=== PATIENT | female | born 1970 | race Caucasian/White ===

== ENCOUNTER 2022-07-24 09:21 | Outpatient (CLI) | payer OTHER, SELFPAY ==
--- NOTE | ~2022-07-24 | MM_ITS ---
EXAMINATION: MM screening tye BI w aide HISTORY: Screening mammogram TECHNIQUE: Craniocaudal and mediolateral oblique 3-D tomosynthesis images were obtained and synthetic 2-D images were generated. CAD analysis was submitted and interpreted. COMPARISON: No prior mammogram is available for comparison at this institution. BREAST PARENCHYMAL COMPOSITION: The breasts are almost entirely fatty. FINDINGS: There is no evidence of suspicious mass, calcification, or architectural distortion to sugg est malignancy in either breast. There has been no suspicious interval change. IMPRESSION: 1. No mammographic evidence of malignancy. 2. Recommend routine screening mammography in one year. BI-RADS Category 1: Negative Reviewed, dictated and finalized at location A. [employer]
== END 2022-07-24 09:22 | disposition home or self-care (01) ==
PROVIDERS: Visit Provider Family Medicine
DX: Z12.31 Encounter for screening mammogram for malignant neoplasm of breast (principal)
CPT/HCPCS: 77063; 77067

== ENCOUNTER 2023-02-25 11:26 | Emergency (ER) | payer BC, SELFPAY ==
[2023-02-25 11:40] VITALS: BP 132/62; PULSE 88; RESP 16; TEMP 36.2; O2SAT 99
[2023-02-25 11:43] VITALS: BP 132/62; PULSE 88; RESP 16; TEMP 36.2; O2SAT 99
--- NOTE | 2023-02-25 11:51 | ED.URI ---
HPI - URI/Sore Throat General Chief Complaint: Upper Respiratory Infection Stated Complaint: SOB/ASTHMA/SLIGHT COPD/LIGHT HEADED Time Seen by Provider: 02/25/23 11:51 Source: patient Mode of arrival: ambulatory Limitations: no limitations History of Present Illness HPI Narrative: 52 yo F presents with c/o SOB with exertion, wheezing in the evenings, difficulty taking full breath for 4 days. Using albuterol inhaler with no relief. States last time she felt this way needed neb treatment. has nebulizer at home but out of albuterol solution. She denies URI symptoms. No CP. All systems reviewed and negative except as note above. Related Data Home Medications Medication Instructions Recorded Confirmed albuterol sulfate 90 mcg/actuation 90 mcg inhalation DAILY 02/25/23 02/25/23 aerosol inhaler bupropion HCl 300 mg 24 hr tablet, 300 mg PO DAILY 02/25/23 02/25/23 extended release buspirone 10 mg tablet 10 mg PO DAILY 02/25/23 02/25/23 fluticasone fur. 100 mcg-umeclid 100 inh inhalation DAILY 02/25/23 02/25/23 62.5 mcg-vilant 25 mcg inhalat.powder (Trelegy Ellipta) hydralazine 25 mg tablet 25 mg PO DAILY 02/25/23 02/25/23 lamotrigine 150 mg tablet 150 mg PO DAILY 02/25/23 02/25/23 pantoprazole 40 mg tablet,delayed 40 mg PO DAILY 02/25/23 02/25/23 release sitagliptin phosphate 25 mg tablet 25 mg PO DAILY 02/25/23 02/25/23 (Januvia) spironolactone 25 25 tablet PO DAILY 02/25/23 02/25/23 mg-hydrochlorothiazide 25 mg tablet vortioxetine 10 mg tablet 10 mg PO DAILY 02/25/23 02/25/23 (Trintellix) Allergies Allergy/AdvReac Type Severity Reaction Status Date / Time Sulfa (Sulfonamide Allergy Mild Hives / Verified 12/16/15 08:59 Antibiotics) Red Face hydrocortisone Allergy Unknown Unknown Verified 02/25/23 11:38 sulfanilamide Allergy Unknown Hives Verified 02/25/23 11:38 cephalexin Allergy Hives Verified 02/25/23 11:38 Review of Systems Review of Systems: CONSTITUTIONAL: Denies fever, chills, or sweats. EYES: Denies visual changes, redness, or discharge. ENT: Denies rhinorrhea, congestion, sore throat, or otalgia. CARDIOVASCULAR: Denies chest pain, palpitations, or edema. RESPIRATORY: Denies cough. Reports dyspnea on exertion. GASTROINTESTINAL: Denies abdominal pain, nausea, vomiting, or diarrhea. GENITOURINARY: Denies dysuria or hematuria. SKIN: Denies rash or itching. MUSCULOSKELETAL: Denies back pain, joint pain, or myalgia. NEUROLOGIC: Denies headache, numbness, or weakness. PSYCHIATRIC: Denies anxiety or depression. All other systems reviewed are negative, except as documented in HPI. [facility] Family History Family History (Updated 03/21/14 @ 07:13 by DOCTOR UNKNOWN) Father Hypertension Mother Hypertension Social History Social History Smoking status: Never smoker Second hand tobacco smoke exposure: No Alcohol intake: never Comments At time of signature, agree with nursing past medical, surgical, social and family history. There is no relevant family history pertinent to the presenting complaint. Exam Narrative: GENERAL: This is a well-nourished, well-developed patient, in no apparent distress. HEAD: normocephalic, atraumatic. EYES: PERRL. Sclera clear/white. Vision is grossly intact. EARS: External ears normal, auditory canals clear and without drainage, TMs normal without perforation. Hearing grossly intact. NOSE: External nose normal with no obvious nasal discharge, nares without redness, no rhinorrhea. THROAT: Mucous membranes moist, posterior pharynx clear. NECK: Neck supple, non-tender without lymphadenopathy, masses or thyromegaly. CARDIOVASCULAR: Regular rate and rhythm without murmurs, gallops, or rubs. RESPIRATORY: Lung sounds mildly decreased throughout all lung blake. No wheezes, rales, or rhonchi. Pt coughs when trying to take deep breath. SKIN: warm, Dry, intact with no suspicious lesions or rash, good texture and turgor. NEURO: awake, alert, and oriented
[2023-02-25] MEDS: predniSONE 20 MG TABLET 40 MG PO (12:07)
[2023-02-25] MEDS: ALBUTEROL SULFATE NEB 2.5 MG/3 ML INH INHALATION (12:08)
[2023-02-25] MEDS: IPRATROPIUM BR 0.02% INH SOLN 0.5 MG/2.5 ML VIAL INHALATION (12:08)
== END 2023-02-25 12:37 | disposition home or self-care (01) ==
PROVIDERS: Emergency Provider Nurse Practitioner Family; PCP Family Medicine
DX: J45.901 Unspecified asthma with (acute) exacerbation (principal); I10 Essential (primary) hypertension; J44.9 Chronic obstructive pulmonary disease, unspecified; E11.9 Type 2 diabetes mellitus without complications; F41.9 Anxiety disorder, unspecified; F32.A Depression, unspecified
CPT/HCPCS: 94640; 99213; G0463; J7512

== ENCOUNTER 2023-04-15 09:11 | Emergency (ER) | payer BC, SELFPAY ==
[2023-04-15 09:21] VITALS: BP 159/80; PULSE 80; RESP 16; TEMP 36.1; O2SAT 99
--- NOTE | 2023-04-15 09:30 | ED.EYEPROB ---
HPI - Eye Problem General Chief complaint: Eye Problems Stated complaint: right eye irritated Time Seen by Provider: 04/15/23 09:30 Source: patient Mode of arrival: ambulatory Limitations: no limitations History of Present Illness HPI Narrative: 52-year-old female a history of asthma and prediabetes presented for complaint of right eye swelling. Onset yesterday. She denies any other complaints or associated vision changes, eye pain, irritation or itching, drainage, or foreign body. She states she has had eye swelling in the past which resolved quickly on its own. Reports concern because this swelling has lasted longer. Her vision is not affected, and eyelid is not occluded. She states she applied cool compresses yesterday after symptoms started. MD chief complaint: eye pain Related Data Home Medications Medication Instructions Recorded Confirmed albuterol sulfate 90 mcg/actuation 90 mcg inhalation DAILY 02/25/23 04/15/23 aerosol inhaler bupropion HCl 300 mg 24 hr tablet, 300 mg PO DAILY 02/25/23 04/15/23 extended release buspirone 10 mg tablet 10 mg PO DAILY 02/25/23 04/15/23 fluticasone fur. 100 mcg-umeclid 100 inh inhalation DAILY 02/25/23 04/15/23 62.5 mcg-vilant 25 mcg inhalat.powder (Trelegy Ellipta) hydralazine 25 mg tablet 25 mg PO DAILY 02/25/23 04/15/23 lamotrigine 150 mg tablet 150 mg PO DAILY 02/25/23 04/15/23 pantoprazole 40 mg tablet,delayed 40 mg PO DAILY 02/25/23 04/15/23 release sitagliptin phosphate 25 mg tablet 25 mg PO DAILY 02/25/23 04/15/23 (Januvia) spironolactone 25 25 tablet PO DAILY 02/25/23 04/15/23 mg-hydrochlorothiazide 25 mg tablet vortioxetine 10 mg tablet 10 mg PO DAILY 02/25/23 04/15/23 (Trintellix) Allergies Allergy/AdvReac Type Severity Reaction Status Date / Time Sulfa (Sulfonamide Allergy Mild Hives / Verified 04/15/23 09:17 Antibiotics) Red Face hydrocortisone Allergy Unknown Unknown Verified 04/15/23 09:17 sulfanilamide Allergy Unknown Hives Verified 04/15/23 09:17 cephalexin Allergy Hives Verified 04/15/23 09:17 Review of Systems Review of Systems: CONSTITUTIONAL: Denies body aches, fever, chills EYES:Endorses swelling to right eye; denies redness, pain, FB sensation, photophobia, visual changes ENT: Denies rhinorrhea, congestion, sore throat, or otalgia. CARDIOVASCULAR: Denies chest pain, palpitations RESPIRATORY: Denies cough or dyspnea. GASTROINTESTINAL: Denies abdominal pain, nausea, vomiting, or diarrhea. SKIN: Denies rash, itching, or wounds. MUSCULOSKELETAL: Denies back pain, joint pain, or myalgia. NEUROLOGIC: Denies headache, numbness, tingling, or weakness. All systems reviewed & are unremarkable except as noted in HPI and below PMFSH Past Medical History Medical History (Updated 04/15/23 @ 09:44 by Shital Zhong APRN) Carcinoid tumor of right lung Essential (primary) hypertension Hypothyroidism, unspecified Unspecified asthma, uncomplicated Family History Family History Father Hypertension Mother Hypertension Social History Social History Smoking status: Never smoker Second hand tobacco smoke exposure: No Alcohol intake: never Comments At time of signature, I have reviewed and agree with nursing past medical, surgical, social and family history unless otherwise noted. Please see nursing chart for further information. There is no relevant family history pertinent to the presenting complaint Exam Narrative: GENERAL: Well-appearing HEAD: Normocephalic, atraumatic. EYES: Right periorbital swelling and mild erythema; no drainage or lesions; nontender, no conjunctival injection, no stye formation. PERRLA EOMI. Lid eversion shows no FB ENT: Mucous membranes pink and moist. No rhinorrhea. TMs normal bilaterally. Throat normal. Uvula midline. CHEST: Clear to auscultation. HEART: Regular rate
== END 2023-04-15 09:44 | disposition home or self-care (01) ==
PROVIDERS: Emergency Provider Nurse Practitioner Family; PCP Family Medicine
DX: H05.221 Edema of right orbit (principal); I10 Essential (primary) hypertension; E03.9 Hypothyroidism, unspecified; J45.909 Unspecified asthma, uncomplicated
CPT/HCPCS: 99211; G0463